=== PATIENT | male | born 1965 | race Caucasian/White ===

== ENCOUNTER 2018-08-19 10:42 | Emergency (ER) | payer BC ==
[2018-08-19] MEDS ORDERED: HYDROcodone/Acetaminophen 5/325 mg Tablet ONE (11:34)
[2018-08-19] MEDS ORDERED: Dexamethasone 4 MG TAB ONE (11:34)
[2018-08-19] MEDS ORDERED: Benzonatate 100 MG CAP ONE (11:34)
== END 2018-08-19 11:39 | disposition home or self-care (01) ==
LOC: MADERS 10:42
DX: J01.90 Acute sinusitis, unspecified (principal); K21.9 Gastro-esophageal reflux disease without esophagitis; F41.9 Anxiety disorder, unspecified; Z79.899 Other long term (current) drug therapy
CPT/HCPCS: 99283; J8540

== ENCOUNTER 2020-09-23 14:50 | Emergency (ER) | payer BC ==
[2020-09-23] MEDS ORDERED: Acetaminophen 500 MG TAB ONE (15:38)
== END 2020-09-23 15:48 | disposition home or self-care (01) ==
LOC: MADERS 14:50
DX: R51.9 Headache, unspecified (principal)
CPT/HCPCS: 99283

== ENCOUNTER 2020-12-21 16:06 | Emergency (ER) | payer OTHER, BC | END 2020-12-21 18:20 | disposition home or self-care (01) | LOC: MADERS 16:06 | DX: M25.512 Pain in left shoulder (principal); W01.198A Fall on same level from slipping, tripping and stumbling with subsequent striking against other object, initial encounter ==